=== PATIENT | male | born 1960 | race Caucasian/White ===

== ENCOUNTER 2016-07-08 21:00 | Observation (INO) | payer BC ==
[2016-07-08] MEDS ORDERED: Sodium Chloride 0.9% 1,000 ML IV ONE (21:37)
[2016-07-08] MEDS ORDERED: LORazepam 2 MG/ML MDV IVPUSH PRN (21:42)
[2016-07-08] MEDS: Sodium Chloride 0.9% 1,000 ML IV SCH (22:38)
[2016-07-08 23:13] LABS: ACETAMINOPHEN < 10 ug/mL (10-30)
--- NOTE | 2016-07-09 00:58 | ER ---
DATE SEEN: 07/08/2016 TIME SEEN: 2130 hours REASON FOR VISIT: Syncope. HISTORY OF PRESENT ILLNESS: This is a 55-year-old male, brought in by the ambulance. History is difficult to obtain, but apparently passed out twice, unknown amount of time. No witnesses, but the EMT reported that he appeared to be postictal and had wet himself. The patient reports to me that he feels weak. He has been on 7 days fast, starting Saturday, so three days into it now, just drinking water only. His family denies any stress or pressure, however, most of the day, he was walking around with one shoe only. He works in the [employer] and was at work when this happened. He complains of no headache, chest pain, or shortness of breath. PAST MEDICAL HISTORY: He has had reaction of stress, depression, and anxiety. ALLERGIES: No known allergies. MEDICATIONS: Amoxicillin. PHYSICAL EXAM: VITAL SIGNS: Pulse is 106. He is afebrile. HEAD: Normocephalic. EYES: Normal. CHEST: Clear. CARDIOVASCULAR: Normal. ABDOMEN: Soft. NEUROLOGIC: No focal findings. MENTAL STATUS: Flat affect. Answers questions slowly, low volume. LABS: So far blood glucose is 125, the rest of the labs are pending. EKG normal sinus rhythm. No ST changes noted. Q-waves were noted in some of the leads. CT head showed mucosal thickening in the sinuses, but otherwise no acute intracranial pathology. IMPRESSION: 1. Syncope. 2. Acute reaction of stress. PLAN: Admit the patient for IV fluid resuscitation. Monitoring and observation and see how he does in the morning before disposition. /[id number] MARIA ISABEL/TALI
[2016-07-09] MEDS: Sodium Chloride 0.9% 1,000 ML IV SCH (06:39)
[2016-07-09] MEDS ORDERED: Haloperidol Lactate 5 MG/ML SDV IM ONE (09:19)
[2016-07-09] MEDS ORDERED: Diazepam 5 MG Tab PO ONE (15:47)
[2016-07-09] MEDS: Amoxicillin/Clavulanate K 500-125 MG Tab PO SCH (18:20)
--- NOTE | 2016-07-09 20:01 | HP ---
ADMISSION DATE: 07/08/2016 CHIEF COMPLAINT: Recent falling episodes while at work. HISTORY OF PRESENT ILLNESS: This patient is a 55-year-old male, [employer] ground worker who was admitted after being brought to the emergency room with the above chief complaint. 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 Yesterday, he had some unusual behaviors. He apparently was walking around with one boot on, one boot off, mumbling to himself throughout most of the day. He did not give the patients their medications nor did he give them supper and he was standing in the kitchen. He now fell down, got up again and then fell a second time. When he fell a second time, one of the higher functioning correction residents became nervous and called 911. The ambulance picked him up and brought him to the emergency room. Apparently, there was an incontinence episode of some urine at sometime during that time. He was evaluated in the emergency room, found to be agitated with elevated blood pressure. He was given some medication to calm him down, but he remained somewhat agitated with elevated blood pressure and they were not quite sure whether it was a seizure or syncopal episode, so he was admitted for observation and further evaluation. He has never had any previous history of seizures and/or syncopal episodes. According to the family, he is on day three of a fast for cleansing. He had been drinking juices and water and not eating. He apparently has done this frequently in the past. According to his ex-, he has had a longstanding preoccupation with mormon, praying, fasting, etc. He has had problems with anxiety and possible depression in the past but has refused antidepressant medications. He does have a prescription for lorazepam that he apparently uses periodically. After evaluation in the emergency room where his electrolytes were found to be normal, his glucose was 131. His creatinine was 1.5 with a BUN of 21. He had a slight elevation in AST at 39 but all other liver functions were normal. Total protein was slightly elevated at 8.5, albumin of 4.6, ratio was 1.2. Urine drug screen was done showing just a small amount of salicylates and acetaminophen but negative for alcohol. According to the family, he does not use alcohol or other drugs. He was admitted here and throughout the night was mildly agitated but for the most part, was quite comfortable early this morning. However, he has become much more agitated and somewhat aggressive trying to leave the screaming at times at the top of his lungs "save me Dimitri, save me Dimitri," And he repeats everything 6 times and then he will lower his head and mumble, and then start screaming again, "I am a donkey, I am a donkey" or "repent me Dimitri." He has done this multiple times and become more and more agitated. For that reason, he was given 10 mg of Haldol IM and since then actually has become much quieter, much more lucid, awake, and can answer questions now. He says he remembers yesterday where he became lightheaded and dizzy in the kitchen and fell down. He is not sure if he hit his head or not. There was no loss of consciousness. He says he remembers he was taken to the emergency room by ambulance and apparently he remembers having a CT scan of his head. He does not remember much about this morning. During that entire time, there was no evidence of tonic-clonic activity. There was no evidence of abnormal posturing, hyperextension, etc. No tremors or other abnormalities were identified. He says he denies any suicidal ideation. He denies seeing things. When I asked if he hears voices or messages, he would not answer. There has been no previous history of psychiatric hospitalizations. He has taken no medicines now other than intermittent lorazepam. He said in the past, he has taken amoxicillin for sinus infection. ALLERGIES: None that are known. SOCIAL HISTORY: He does not smoke. Does not use alcohol. Denies any other drug use. PAST MEDICAL HISTORY: Pertinent and other than that mentioned above in that he apparently has had an inguinal herniorrhaphy on the right. He says he has been hospitalized with a flu, etc., and had some hospitalizations in [place] in the past but he would not expand on that at all. FAMILY HISTORY: The father apparently from complications of emphysema and smoking when he was 80. Mom is still living in her 70s and apparently in good health. He has 3 brothers and 2 sisters, apparently all of them are in good health. REVIEW OF SYSTEMS: Full review of systems was discussed. Otherwise, was unremarkable. PHYSICAL EXAMINATION: VITAL SIGNS: At this time, showed him to be afebrile. Blood pressure was 155/75, pulse is 104 and regular, respirations were 16. GENERAL: At this time, he is well developed, well nourished, and in no acute distress, prior to that, as noted above. HEENT: Unremarkable. HEENT: The head is normocephalic and atraumatic. Pupils are round and reacted well to light and accommodation. Extraocular movements were intact. Sclerae and conjunctivae were clear. Nasal passages showed no discharge. Pharynx and palate were unremarkable. NECK: Supple. Carotid pulses strong and equal. Thyroid was not enlarged. BACK: Straight. No deformities were noted. CHEST: Clear to auscultation and percussion. CARDIOVASCULAR: Revealed a normal S1 and S2 without murmur, rub, or gallop. ABDOMEN: Soft, nontender, without organomegaly or masses. Bowel sounds are normal and right inguinal scar is well healed. EXTREMITIES: Without clubbing, no edema. No ulcerations or areas of breakdown. NEUROLOGICAL: At this time revealed the cranial nerves to be intact. His sensory and motor exam was grossly normal. He knew where he was at this time and again denies any active visual hallucinations. There is no active delusional thinking at this time, but this is after his Haldol dose. LABORATORY DATA: As I said before, his hemoglobin was 15.8, hematocrit of 45.7, white count of 9900, with normal differential. Sodium 137, potassium of 4.1, BUN was 21, creatinine 1.5. His glucose was 131. Liver functions were normal. Slight elevation in AST at 39, total protein 8.5, albumin of 4.6, drug screen was negative. The second one was repeated today and was negative except for benzodiazepines and apparently while in the emergency room, we repeated his electrolytes, which were normal. His glucose was 111 and his creatinine then improved to 1.0 after IV fluids had been established last night. IMPRESSION: 1. Recent falling episode. It is difficult to know whether this was syncope from weakness and dehydration from his recent past or possible seizure. It does not sound seizures like, but will wait and see. 2. Acute psychotic episode with a markedly abnormal behavior. This may in fact have been going on for some time or aggravated by the above mentioned past, still have to rule out other causes such as a seizure disorder or other metabolic problems such as hypothyroidism eccentric. PLAN: The patient has already had a CT scan done which was read as negative except for some mild right ethmoidal and right frontal sinus inflammation. I talked to psychiatry in [place] and they have recommended initiating some Seroquel along with getting an MRI of his head. We will also check a TSH. We will see if we can get him lined up with psychiatry as an outpatient and we will see how the Seroquel does with his behaviors and we will proceed from there. /[id number] WM/MODL
[2016-07-10] MEDS: Amoxicillin/Clavulanate K 500-125 MG Tab PO SCH (06:12)
[2016-07-10 08:27] VITALS: BP 136/92
--- NOTE | 2016-07-10 12:20 | PN ---
DATE SEEN: 07/10/2016 SUBJECTIVE: Mr. Lopez is seen today for followup. Since initiating the Haldol now Seroquel he is doing much better. He was given an extra dose Seroquel last night and actually slept fairly well. This morning, he is alert and oriented x3. Very pleasant. Denies any current hallucinations either auditory or visual and has had no further chanting. His sister was with him got attested that she stayed with him all night. He expressed to the nurse that he had in the past some suicidal ideation, although it was not serious and he has no plans for this. He has agreed that he will go ahead and see Psychiatry and referral has been made for an appointment in the near future. He is tolerating the Seroquel without difficulties and has no other complaints or concerns. We also started him on Augmentin for sinusitis noted on the CT scan of his head. He is tolerating this well without difficulties. He did have an MRI done last night, shows no acute abnormalities and a TSH was done yesterday which was normal at 1.8. PHYSICAL EXAMINATION: VITAL SIGNS: At this time shows him to be afebrile. Blood pressure today was 132/92, pulse was 100 and regular, respirations were 22 and unlabored, and O2 saturation is 98%. GENERAL: Well-developed, well- nourished male, who appears much more comfortable. Awake, alert, oriented, and cooperative. HEENT: Unremarkable. Thyroid was not enlarged. CHEST: Clear. CARDIOVASCULAR: Revealed a normal S1 and S2 without murmur, rub, or gallop. ABDOMEN: Unremarkable. EXTREMITIES: Unremarkable. NEUROLOGIC: The patient is oriented as to person, time, and place. Again, denies any auditory or visual hallucinations. There is no evidence of delusions and makes good eye contact. Today, he interacts and answers all questions appropriately. IMPRESSION: 1. Recent episode of almost psychotic behavior with a history of anxiety and possible auditory hallucinations, improved. 2. Sinusitis. PLAN: We will go ahead and discharge him on Seroquel 50 mg b.i.d. We will continue the Augmentin 500 mg b.i.d. for another 6 days and humidification and normal saline nasal wash was recommended. An appointment referral for Psychiatry has been placed and he will follow up with him. He has to see his regular local physician, Dr. Gold in 1 week for recheck and review. If there are problems or other difficulties arise, to let us know. /[id number] /MODL
== END 2016-07-10 11:35 | disposition home or self-care (01) ==
LOC: FB.ED 21:00 → FB.MS 21:44 → FB.ICU 21:44
PROVIDERS: ADMIT Family Medicine; ATTEND Family Medicine
DX: R55 Syncope and collapse (principal); F43.0 Acute stress reaction; F41.8 Other specified anxiety disorders; J32.9 Chronic sinusitis, unspecified
CPT/HCPCS: 36415; 70450; 70551; 80048; 80053; 80305; 82962; 84443; 84484; 85025; 93005; 96361; 96372; 96374; 99285; A9270; G0378; G0480; J1630; J2060; J7040; 96360

== ENCOUNTER 2021-03-28 09:48 | Emergency (ER) | payer BC, OTHER ==
[2021-03-28] MEDS ORDERED: Sodium Chloride 0.9% 10 ML Syringe FLUSH PRN (09:50)
[2021-03-28] MEDS ORDERED: Sodium Chloride 0.9% 1,000 ML IV SCH (10:00)
[2021-03-28 10:57] VITALS: BP 101/52; PULSE 85
== END 2021-03-28 11:50 | disposition home or self-care (01) ==
LOC: FB.ED 09:48
DX: R55 Syncope and collapse (principal); E86.0 Dehydration; Z88.0 Allergy status to penicillin
CPT/HCPCS: 36415; 80053; 84484; 85025; 93005; 99285; J7030